=== PATIENT | female | born 1960 | race Caucasian/White ===

== ENCOUNTER 2017-01-01 05:48 | Day surgery (SDC) | payer OTHER ==
[2017-01-01] MEDS ORDERED: DIPRIVAN 200 MG/20 ML IV ONE (05:49)
[2017-01-01] MEDS ORDERED: Ketamine HCl 50 MG/ML IV ONE (05:49)
[2017-01-01] MEDS: Lactated Ringers 1,000 ML IV SCH ×2 (06:26→08:03)
[2017-01-01] MEDS ORDERED: Zofran 4 MG/2 ML VIAL IV STA (07:55)
[2017-01-01] MEDS ORDERED: Lactated Ringers 1,000 ML IV ONE (07:57)
[2017-01-01] MEDS ORDERED: Zofran 4 MG/2 ML VIAL ONE (07:57)
--- NOTE | 2017-01-01 09:28 | OP ---
SURGERY DATE/TIME: 01/01/2017825 PREOPERATIVE DIAGNOSIS: Screening colonoscopy. POSTOPERATIVE DIAGNOSIS: Rectal polyp x3. PROCEDURE: Colonoscopy. SURGEON: Marco De La O M.D. ANESTHESIA: MAC by Alonso Kaplan CRNA. ESTIMATED BLOOD LOSS: Minimal. SPECIMENS: Three cold forceps polypectomies from the rectum. DESCRIPTION OF PROCEDURE: After informed written consent was obtained, the patient was taken to the endoscopy suite. She underwent monitored anesthesia and digital rectal exam showed normal sphincter tone and no internal lesions. The scope was inserted into the rectum and sequentially the entire colonic mucosa was traversed. The level of cecum was reached and verified with direct visualization of ileocecal valve. Upon withdrawal careful mucosal inspection revealed three small sessile flat polyps in the rectal area which were removed in their entirety with cold forceps and sent for pathology testing. No other lesions were encountered. The scope was removed and the patient was transferred to the recovery room in excellent condition. She will follow up in the office in one week for pathology results.
[2017-01-01 09:54] VITALS: O2SAT 96
[2017-01-01 10:13] VITALS: BP 141/81; PULSE 79
== END 2017-01-01 10:25 | disposition home or self-care (01) ==
LOC: SDC 05:48
PROVIDERS: ATTEND Family Medicine
PROC: 0DBP8ZX Excision of Rectum, Via Natural or Artificial Opening Endoscopic, Diagnostic (ICD-10-PCS; principal; 2017-01-01)
DX: K62.1 Rectal polyp (principal); Z12.11 Encounter for screening for malignant neoplasm of colon
CPT/HCPCS: 00810; 36415; J2405; J2704

== ENCOUNTER 2023-07-23 20:20 | Emergency (ER) | payer OTHER ==
[2023-07-23 20:31] VITALS: RESP 18; TEMP 97.6
[2023-07-23 21:37] VITALS: O2SAT 98
[2023-07-23] MEDS ORDERED: XYLOCAINE 1% HCL 20 ML MDV ONE (21:44)
[2023-07-23] MEDS: XYLOCAINE 1% HCL 20 ML MDV SUBDERMAL ONE (21:58)
--- NOTE | 2023-07-23 22:39 | XRAY ---
CLINICAL HISTORY: trauma TECHNIQUE: An axial non-contrast CT scan of the brain was performed from the skull base to the high parietal region. CTDI: 53.92 mGy, DLP: 977.56 mGy-cm. COMPARISON: None. FINDINGS: The visualized brain parenchyma shows a normal appearance. No focal parenchymal abnormalities are demonstrated. Trujillo-white matter differentiation is maintained. No midline shifts or deformity. Diffuse intracranial atherosclerosis was identified. No intracerebral or extra axial hematoma. Normal size and configuration of the cerebral ventricles. Normal CT appearance of the posterior fossa structures namely the cerebellar hemispheres, brainstem, and cerebellar peduncles. The IACs are unremarkable. The cerebello-pontine angles are clear. The pituitary gland, the pineal gland, and the optic chiasm is unremarkable. The osseous structures in the skull base are unremarkable. No definite calvarium fractures. Minimal mucosal thickening is identified in the right maxillary sinus. The rest of the visualized paranasal sinuses and bilateral mastoid air cells are clear. Focal skin abrasion with cutaneous-subcutaneous air at the left frontal soft tissues was noted. IMPRESSION: 1. No intracranial hemorrhage, gross established territorial infarction or mass effect. 2. No definite calvarium fracture. 3. Left frontal cutaneous abrasion with free air. Please correlate clinically. 4. Diffuse intracranial atherosclerosis. Electronically Signed by: Brenda Rachel MD. (07/23/2023 22:35:48 EST)
--- NOTE | 2023-07-23 23:00 | ERPHSYRPT ---
- History of Present Illness Time Seen by Provider: 07/23/23 20:45 Source: patient Exam Limitations: no limitations Patient Subjective Stated Complaint: tripped over laundry basket and hit head on the inside edge of door Triage Nursing Assessment: Pt ambulated into ER without diff, spouse at bedside. Around 8pm, pt was walking thru the house and tripped over a laundry basket and hit her head on the inside edge of a door. Laceration from forehead to head on middle left side. laceration is 3.4cm L x 0.1cm W x 0.4cm D, serous drainage noted. Physician History: Patient 63-year-old female presents to our ED for evaluation of a laceration to her forehead. Patient states she tripped over a laundry basket fell forward and hit her head at the edge of a door. Patient now has a 3.4 cm x 0.1 cm x 0.4 cm laceration to her forehead. No loss of consciousness. No neck pain. Cervical spine cleared clinically. Symptoms are mild to moderate in intensity. There is some discomfort with manipulation of the wound. Patient otherwise feels well. No other injuries reported. at bedside. They voiced no other complaints or concerns at this time. Portions of this note were created with voice recognition technology. There may be grammatical, spelling, punctuation or sound alike errors Occurred: just prior to arrival Severity: moderate Head Injury Location: frontal Method of Injury: fell Loss of Consciousness: no loss of consciousness Associated Symptoms: denies symptoms Allergies/Adverse Reactions: sulfamethoxazole [From [facility]] Allergy (Verified 07/23/23 20:45) trimethoprim [From [facility]] Allergy (Verified 07/23/23 20:45) acetaminophen [From [place]] Adverse Reaction (Intermediate, Verified 07/23/23 20:46) hydrocodone [From [place]] Adverse Reaction (Intermediate, Verified 07/23/23 20:46) Home Medications: Loratadine 10 mg [Claritin 10 mg] 10 mg PO UD PRN 12/27/16 [History] Multivitamin [Multivitamins] 1 each PO DAILY 12/27/16 [History] Adalimumab [Humira(Cf) Pen] 40 mg SQ UD 07/23/23 [History] Folic Acid 1 mg [Folate 1 mg] 1 tab PO DAILY 07/23/23 [History] Methotrexate Sodium/Pf [Methotrexate 50 mg/2 ml Vial] 50 mg SQ WEEKLY 07/23/23 [History] Simvastatin 5 mg PO HS 07/23/23 [History] Timolol Maleate/Pf [Timolol Maleate 0.5% Eye Drop] 2 drops BID 07/23/23 [History] Hx Tetanus, Diphtheria Vaccination/Date Given: No Hx Influenza Vaccination/Date Given: Yes Hx Pneumococcal Vaccination/Date Given: No Travel Risk - International Travel Have you traveled outside of the country in past 3 weeks: No - Coronavirus Screening Are you exhibiting any of the following symptoms?: No Close contact with a COVID-19 positive Pt in past 14-21 Days: No - Vaccine Status Have you recieved a Covid-19 vaccination: Yes Gis Coordinator: [place] - Vaccination Dates Date of 2cond Vaccination (if applicable): . - Review of Systems Constitutional: No Symptoms, No Fever, No Chills Eyes: No Symptoms Ears, Nose, & Throat: No Symptoms Respiratory: No Symptoms, No Cough, No Dyspnea Cardiac: No Symptoms, No Chest Pain, No Edema, No Syncope Abdominal/Gastrointestinal: No Symptoms, No Abdominal Pain, No Nausea, No V omiting, No Diarrhea Genitourinary Symptoms: No Symptoms, No Dysuria Musculoskeletal: No Symptoms, No Back Pain, No Neck Pain Skin: No Symptoms, No Rash Neurological: No Symptoms, No Dizziness, No Focal Weakness, No Sensory Changes Psychological: No Symptoms Endocrine: No Symptoms Hematologic/Lymphatic: No Symptoms Immunological/Allergic: No Symptoms All Other Systems: Reviewed and Negative - Past Medical History Pertinent Past Medical History: Yes Neurological History: Peripheral Neuropathy ENT History: Glaucoma Cardiac History: High Cholesterol Respiratory History: No Pertinent History Endocrine Medical History: No Pertinent History Musculoskeletal History: Rheumatoid Arthritis GI Medical History: Gallbladder Disease History: No Pertinent History Psycho-Social History: No Pertinent History Female Reproductive Disorders: No Pertinent History Other Medical History: hx smoker - Past Surgical History Past Surgical History: Yes Neuro Surgical History: No Pertinent History Cardiac: No Pertinent History Respiratory: No Pertinent History Gastrointestinal: Cholecystectomy Genitourinary: No Pertinent History Musculoskeletal: No Pertinent History Female Surgical History: Section Other Surgical History: x2. knee- Left ACL. left leg vein stripping. right fifth finger tendon repair. carpal tunnel balwinder. rt hip replacement - Social History Smoking Status: Former smoker How long have you smoked: 20 yrs Exposure to second hand smoke: No Drug Use: none Patient Lives Alone: No - Nursing Vital Signs Nursing Vital Signs: Initial Vital Signs Temperature 97.6 F 07/23/23 20:29 Pulse Rate 66 07/23/23 20:29 Respiratory Rate 18 07/23/23 20:29 Blood Pressure 148/69 07/23/23 20:29 O2 Sat by Pulse Oximetry 97 07/23/23 20:29 Pain Scale Pain Intensity 3 - Naselle Coma Score Best Eye Response (Armida): (4) open spontaneously Best Verbal Response (Naselle): (5) oriented Best Motor Response (Naselle): (6) obeys commands Armida Total: 15 - Physical Exam General Appearance: no apparent distress, alert Head Injury: lacerations (3.4 cm laceration to forehead. No active bleeding) Eye Exam: bilateral eye: normal inspection, PERRL, EOMI ENT Exam: airway nml, No dental injury, No clear fluid (ears), No clear fluid (nose), No midface instability Neck Exam: supple, trachea midline, full range of motion, normal alignment Cardiovascular/Respiratory Exam: chest non-tender, normal breath sounds, regular rate/rhythm Gastrointestinal/Abdominal Exam: soft, non tender, no distention Back Exam: normal inspection, No vertebral tenderness Extremity Exam: non-tender, normal range of motion, normal inspection Mental Status Exam: alert, oriented x 3, cooperative Motor/Sensory Exam: no motor deficit, no sensory deficit, CN II-XII intact Skin Exam: normal color, warm, dry, No rash Lymphatic Exam: No adenopathy SpO2 Interpretation: normal SpO2: 98 O2 Delivery: Room Air Procedures - Laceration/Wound Repair Frontal Time of Procedure: 23:00 Wound Location: forehead Wound Length (cm): 3.4 Wound's Depth, Shape: superficial Wound Explored: clean Irrigated: Yes Hibiclens Prep: Yes Anesthesia: 1% Lidocaine Volume Anesthetic (ccs): 4 Wound Debrided: No debridement indicated Wound Repaired With: sutures Suture Size/Type: 4-0 Number of Sutures: 6 Layer Closure?: No Sterile Dressing Applied?: Yes Sling Applied?: No Progress: Patient tolerated procedure well. We placed 7 simple interrupted using 6-0 Ethilon. Patient was developing a hematoma at the wound site so we will reinforce the wound with two 4-0 Ethilon. 07/23/23 23:29 - Course Nursing assessment & vital signs reviewed: Yes - CT Exams Head CT Interpretation: Tele-radiologist Report (No acute intracranial pathology. Diffuse intracranial atherosclerosis) Ordered Tests: Active Orders 24 hr Category Date Time Status HEAD WITHOUT CONTRAST [CT] Stat Exams 07/23/23 21:30 Completed Medication Summary Discontinued Medications Generic Name Dose Route Start Last Admin Trade Name Matt PRN Reason Stop Dose Admin Lidocaine HCl Confirm 07/23/23 21:44 Lidocaine Hcl 1% 20 Ml Mdv 20 Ml Ml Administered 07/23/23 21:45 Dose 10 ml .ROUTE .STK-MED ONE Lidocaine HCl 10 ml 07/23/23 21:57 07/23/23 21:58 Lidocaine Hcl 1% 20 Ml Mdv 20 Ml Ml SUBDERMAL 07/23/23 21:58 10 ml STAT ONE Administration - Progress Progress: improved Progress Note: 63-year-old female presents to our ED for evaluation of laceration to her forehead. Patient tripped and fell into a door. Injury occurred prior to arrival. No LOC. No neck pain. Cervical spine cleared clinically. Physical exam otherwise nonremarkable. Patient has a 3.4 cm laceration to her forehead. CT scan negative for acute intracranial pathology. 9 simple interrupted sutures placed. 7 were 6-0 Ethilon and 2 were 4-0 Ethilon. Patient tolerated procedure well. No complications. Please see procedure note for details. Sutures are to remain in place for 10 days. Patient agrees to follow-up with her primary care doctor within 48 hours for evaluation. Portions of this note were created with voice recognition technology. There may be grammatical, spelling, punctuation or sound alike errors Complexity problem addressed is moderate acute complicated No critical care time Complexity of data reviewed and analyzed is moderate. Test ordered test reviewed. Results analyzed and correlated clinically with history and physical examination. Risk of complication and or risk of morbidity/mortality of patient management is moderate. Vital stable. Time spent to discharge patient is approximately 20 minutes. Plan of care established for shared decision making. No social determinants of health present impede follow-up. Portions of this note were created with voice recognition technology. There may be grammatical, spelling, punctuation or sound alike errors 07/23/23 23:31 Tetanus updated in our ED. 07/23/23 23:34 Counseled pt/family regarding: diagnosis, need for follow-up, rad results - Departure Departure Disposition: Home Clinical Impression: Fall, Laceration Condition: Stable Critical Care Time: No Referrals: YIFAN VALLEJO [Primary Care Provider] - Follow up/PCP as directed Additional Instructions: Discharge/Care Plan BJ MENDENHALL was seen on 07/23/23 in the Emergency Room. The patient was counseled regarding Diagnosis,Lab results, Imaging studies, need for follow up and when to return to the Emergency Room. Prescriptions given: Discharge Note I have spoken with the patient and/or caregivers. I have explained the patient's condition, diagnosis and treatment plan based on the information available to me at this time. I have answered the patient's and/or caregiver's questions and addressed any concerns. The patient and/or caregivers have as good understanding of the patient's diagnosis, condition and treatment plan as can be expected at this point. The vital signs have been stable. The patient's condition is stable and appropriate for discharge from the emergency department. The patient will pursue further outpatient evaluation with the primary care physician or other designated or consulting physician as outlined in the discharge instructions. The patient and/or caregivers are agreeable to this plan of care and follow-up instructions have been explained in detail. The patient and/or caregivers have received these instruction. The patient/and or caregivers are aware that any significant change in condition or worsening of symptoms should prompt an immediate return to this or the closest emergency department or call 911.
[2023-07-23 23:30] VITALS: BP 145/53; PULSE 67
[2023-07-23] MEDS ORDERED: Adacel Vial IM ONE (23:31)
[2023-07-23] MEDS: Adacel Vial IM ONE (23:34)
== END 2023-07-23 23:41 | disposition home or self-care (01) ==
LOC: ED 20:20
DX: S01.81XA Laceration without foreign body of other part of head, initial encounter (principal); W18.30XA Fall on same level, unspecified, initial encounter; Z79.899 Other long term (current) drug therapy; Z20.828 Contact with and (suspected) exposure to other viral communicable diseases
CPT/HCPCS: 12013; 70450; 90471; 90715; 99283